=== PATIENT | female | born 1975 | race African-American/Black ===

== ENCOUNTER → 2017-01-31 | Outpatient (CLI) | payer BC ==
[2017-01-31 13:17] LABS: BASOPHILS % (AUTO) 0.6 % (0.2-1.0); EOSINOPHILS # (AUTO) 0.1 x10^3/uL (0.0-0.2); HEMATOCRIT 48.8 % (36.0-47.0); HEMOGLOBIN 16.5 g/dL (12.0-16.0); LYMPHOCYTES # (AUTO) 3.9 X10^3/uL (1.3-2.9); LYMPHOCYTES % (AUTO) 64.7 % (21.0-51.0); MEAN CORPUSCULAR HEMOGLOBIN 26.5 pg (27.0-34.0); MEAN CORPUSCULAR HGB CONC 33.9 g/dL (33.0-35.0); MEAN CORPUSCULAR VOLUME 78.2 fL (80.0-100.0); MEAN PLATELET VOLUME 9.1 fL (7.4-11.0); MONOCYTES # (AUTO) 0.2 x10^3/uL (0.3-0.8); NEUTROPHILS # (AUTO) 1.7 x10^3/uL (2.2-4.8); NEUTROPHILS % (AUTO) 28.7 % (42.0-75.0); PLATELET COUNT 199 X10^3/uL (150.0-450.0); RED BLOOD COUNT 6.23 X10^6/uL (3.5-5.4); RED CELL DISTRIBUTION WIDTH 16.7 % (11.6-16.5)
[2017-01-31 13:30] LABS: CREATININE,URINE 105.14 mg/dL (29-226); MICROALBUMIN,URINE 90.2 mg/L
[2017-01-31 13:31] LABS: ALANINE AMINOTRANSFERASE 41 Units/L (12-78); ALBUMIN 4.6 g/dL (3.4-5.0); ALKALINE PHOSPHATASE 107 Units/L (46-116); ASPARTATE AMINO TRANSFERASE 18 Units/L (15-37); BLOOD UREA NITROGEN 11 mg/dL (7-18); CALCIUM 9.9 mg/dL (8.5-10.1); CARBON DIOXIDE 29.7 mmol/L (21-32); CHLORIDE 103 mmol/L (98-107); CHOL/HDL RATIO 3.1 (0.0-5.0); CHOLESTEROL 246 mg/dL (0-200); COR NA(FOR HYPERGLY) 144 mmol/L (136-145); CREATININE 0.91 mg/dL (0.55-1.02); GLUCOSE 183 mg/dL (65-99); HDL CHOLESTEROL 80 mg/dL (40-60); SODIUM 142 mmol/L (136-145); TRIGLYCERIDES 87 mg/dL (0-150); eGFR BLACK RACES > 60 (>60); eGFR NON BLACK RACES > 60 (>60)
[2017-01-31 13:33] LABS: HEMOGLOBIN A1C 8.4 % (4.5-6.2)
[2017-01-31 14:16] LABS: PLATELET MORPHOLOGY COMMENT NORMAL (NORMAL)
--- NOTE | 2017-01-31 14:25 | RAD ---
HISTORY: Abdominal pain Study: Flat and upright abdomen, PA chest Comparison: None Findings: The abdominal gas pattern is nonspecific and nonobstructive. No pneumoperitoneum is identified. Ther e is a large amount of stool within the colon. There is a 9.4 millimeter calcification overlying the right kidney likely a right renal calculus. The chest is clear. IMPRESSION: No acute intra-abdominal abnormality by plain film criteria Constipation Right renal calculus Reported By:
== END ==
LOC: LAB 12:35
PROVIDERS: ATTEND Obstetrics & Gynecology Obstetrics
DX: K59.01 Slow transit constipation (principal); E11.9 Type 2 diabetes mellitus without complications; I10 Essential (primary) hypertension
CPT/HCPCS: 36415; 74022; 80053; 80061; 82043; 83036; 83525; 85025

== ENCOUNTER 2017-10-01 10:25 | Emergency (ER) | payer SELFPAY ==
[2017-10-01 10:31] VITALS: BMI 25.0
[2017-10-01 10:33] VITALS: BP 184/101
--- NOTE | 2017-10-01 11:59 | DR.FBACK ---
HPI - Time Seen Time seen: 12:25 - PCP Primary Care Physician: HELTON - Complaint Chief Complaint Doctor Comments: Patient presents with complaint of back pain with pain radiating down to lower extremities. She denies a history of trauma. Chief Complaint:: PT. C/O LOWER BACK PAIN THAT RADIATES AROUND TO ABDOMEN AND DOWN LEGS. DENIES INJURY. PT. HAS HX. CHRONIC BACK PAIN BUT SHE STATES "NOT LIKE THIS." - Source History Provided: Patient - Mode of Arrival Mode of Arrival: Wheelchair - Timing Onset of Chief Complaint: 09/29/17 PMH - PMH Past Medical History: Yes Past Medical History: CVA, Diabetes, Hypertension, Kidney Stones Past Medical History Comment: UTI Past Surgical History: Yes Surgical History: Cholecystectomy, Hysterectomy, Other - Family History History of Family Medical Conditions: Yes Family Medical History: Diabetes Mellitus, Cancer, Hypertension - Social History Does patient currently use any type of tobacco product: No Have you used tobacco products in the last 12 months: No Type of Tobacco Use: None Does any household member use tobacco: No Alcohol Use: None Do you use any recreational Drugs:: No Lives With: Spouse Lives Where: Home - infectious screening In the last 2 months have you had wt loss of >10#?: NO Have you had fever, night sweats or hemotysis?: No Have you traveled outside the country in the last 6 months?: No Isolation: Standard ROS - Review of Systems Eyes: No Symptoms Reported ENTM: No Symptoms Reported Respiratoy: No Symptoms Reported Cardiovascular: No Symptoms Reported Gastrointestinal/Abdominal: No Symptoms Reported Genitourinary: No Symptoms Reported Neurological: No Symptoms Reported Musculoskeletal: Back Pain Integumentary: No Symptoms Reported Hematologic/Lymphatic: No Symptoms Reported Endocrine: No Symptoms Reported Psychiatric: No Symptoms Reported All Other Systems: Reviewed and Negative PE - Vitals Vital Signs: Temp Pulse Resp BP Pulse Ox 10/01/17 10:27 97.5 F L 64 17 184/101 100 - General General Appearance: Alert, In No Apparent Distress - Head Head Exam: Normal Inspection, Atraumatic - Eyes Eye exam: Normal Appearance, PERRL, EOMI - ENT ENT Exam: Normal Exam - Chest Chest Inspection: Normal Inspection, Symmetric Chest Wall Rise, Tenderness - Respiratory Respiratory Exam: Normal Lung Sounds Bilat, Accessory Muscle Use Respiratory Exam: Bilateral Clear to Auscultation - Cardiovascular Cardiovascular Exam: Regular Rate - Abdominal Exam Abdominal Exam: Normal Inspection, Normal Bowel Sounds Abdominal Tenderness: negative: RUQ, RLQ, LUQ, LLQ, Epigastrium, Suprapubic, Diffuse, Mild, Moderate, Severe, Other - Genitourinary External Exam: Female: Deferred : Speculum Exam (Female): Deferred : Bimanual Exam (female): Deferred - Extremities Extremities Exam: Normal Inspection, Full ROM - Back Back Exam: Tenderness (mid low back) - Neurological Neurological Exam: Alert, Oriented X3, CN II-XII Intact - Psychiatric Psychiatric Exam: Normal Affect, Normal Mood - Skin Skin Exam: Warm, Dry, Intact ROR - XRAY XRAY Interpreted by: Radiologist (Lumbar spine: Degenerative disc disease L5-S1 , Facet degenerative joint disease L5-S1,L4-5, probable right renal calculus, Calcification adjacent to the right transverse process of L3. A ureteral calculus cannot be entirely excluded.) - Diagnosis Discharge Problem: Osteoarthritis of back Qualifiers: Spinal osteoarthritis complication: with radiculopathy Qualified Code(s): M47.25 - Other spondylosis with radiculopathy, thoracolumbar region - Discharge Plan Condition: Stable - Follow ups/Referrals Follow ups/Referrals: SOPHIE HELTON [Primary Care Provider] - 3 days - Instructions
[2017-10-01] MEDS ORDERED: TORADOL 60 MG VIAL IM ONE (12:24)
[2017-10-01] MEDS ORDERED: TORADOL 60 MG VIAL ONE (12:55)
--- NOTE | 2017-10-01 13:19 | RAD ---
HISTORY: Low back pain Study: Lumbar spine AP, lateral, spot Comparison: None Findings: The alignment is normal. The vertebral bodies are of average height. The disc spaces are preserved wi th the exception of slight narrowing at L5-S1 with some associated degenerative endplate changes. The pedicles are intact. The SI joints are normal. Bilateral facet degenerative joint disease is present at L4-5 and L5-S1 bilaterally. There is a calcification in the area of the right kidney possibly a r ight lower pole renal calculus. Additionally there is a calcification just to the right of the right transverse process of L3. A ureteral calculus could not be excluded. Clinical correlation should dete rmine need for further evaluation with stone protocol CT. IMPRESSION: Degenerative disc disease L5-S1 Facet degenerative joint disease L5-S1, L4-5 Probable right renal calculus Calcification adjacent to the right transverse process of L3. A ureteral calculus cannot be entirely excluded Reported By:
== END 2017-10-01 13:45 | disposition home or self-care (01) ==
LOC: ER 10:27
DX: M47.25 Other spondylosis with radiculopathy, thoracolumbar region (principal)
CPT/HCPCS: 72100; 96372; 99282; 99283; J1885